=== PATIENT | male | born 1940 | race Caucasian/White ===

== ENCOUNTER → 2020-09-15 13:30 | Outpatient (BNVA) | payer MEDICARE, SELFPAY | PROVIDERS: PCP Internal Medicine; Referring Provider Internal Medicine; Visit Provider Urology | DX: N39.0 Urinary tract infection, site not specified (principal); C61 Malignant neoplasm of prostate; N31.9 Neuromuscular dysfunction of bladder, unspecified | CPT/HCPCS: 51701; 51702; 99212 ==

== ENCOUNTER → 2020-10-13 14:01 | Outpatient (BNVA) | payer MEDICARE, SELFPAY | PROVIDERS: PCP Nurse Practitioner Family; Referring Provider Nurse Practitioner Family; Visit Provider Urology | DX: Z46.6 Encounter for fitting and adjustment of urinary device (principal) | CPT/HCPCS: 51701; 51702; 99212 ==

== ENCOUNTER → 2020-11-10 12:29 | Outpatient (BNVA) | payer MEDICARE, SELFPAY | PROVIDERS: PCP Nurse Practitioner Family; Referring Provider Nurse Practitioner Family; Visit Provider Urology | DX: N31.9 Neuromuscular dysfunction of bladder, unspecified (principal); C61 Malignant neoplasm of prostate | CPT/HCPCS: 51701; 51702; 99212 ==

== ENCOUNTER → 2020-12-09 15:42 | Outpatient (BNVA) | payer MEDICARE, SELFPAY | PROVIDERS: PCP Nurse Practitioner Family; Visit Provider Urology | DX: N31.9 Neuromuscular dysfunction of bladder, unspecified (principal); Z85.46 Personal history of malignant neoplasm of prostate | CPT/HCPCS: 51701; 51702; 99212 ==

== ENCOUNTER → 2021-01-06 15:37 | Outpatient (BNVA) | payer MEDICARE, SELFPAY | PROVIDERS: PCP Nurse Practitioner Family; Visit Provider Urology | DX: Z46.6 Encounter for fitting and adjustment of urinary device (principal) | CPT/HCPCS: 51701; 51702; 99212 ==

== ENCOUNTER → 2021-01-27 14:43 | Outpatient (BNVA) | payer MEDICARE, SELFPAY | PROVIDERS: PCP Nurse Practitioner Family; Visit Provider Urology | DX: Z43.5 Encounter for attention to cystostomy (principal) | CPT/HCPCS: 51701; 51702; 51705; 99212 ==

== ENCOUNTER → 2021-02-23 14:45 | Outpatient (BNVA) | payer MEDICARE, SELFPAY | PROVIDERS: PCP Nurse Practitioner Family; Visit Provider Urology | DX: N39.0 Urinary tract infection, site not specified (principal); N31.9 Neuromuscular dysfunction of bladder, unspecified; R33.9 Retention of urine, unspecified; N35.919 Unspecified urethral stricture, male, unspecified site | CPT/HCPCS: 51701; 51702; 99212 ==

== ENCOUNTER → 2021-03-24 14:05 | Outpatient (BNVA) | payer MEDICARE, SELFPAY | PROVIDERS: PCP Nurse Practitioner Family; Visit Provider Urology | DX: N39.0 Urinary tract infection, site not specified (principal); C61 Malignant neoplasm of prostate; N31.9 Neuromuscular dysfunction of bladder, unspecified | CPT/HCPCS: 51701; 51702; 51705; 99212 ==

== ENCOUNTER → 2021-04-25 14:08 | Outpatient (BNVA) | payer MEDICARE, SELFPAY | PROVIDERS: PCP Nurse Practitioner Family; Visit Provider Urology | DX: N39.0 Urinary tract infection, site not specified (principal); N31.9 Neuromuscular dysfunction of bladder, unspecified; C61 Malignant neoplasm of prostate | CPT/HCPCS: 51701; 51705; 99212 ==

== ENCOUNTER → 2021-05-23 14:01 | Outpatient (BNVA) | payer MEDICARE, SELFPAY | PROVIDERS: PCP Nurse Practitioner Family | DX: Z46.6 Encounter for fitting and adjustment of urinary device (principal); N31.9 Neuromuscular dysfunction of bladder, unspecified; Z88.2 Allergy status to sulfonamides; Z88.8 Allergy status to other drugs, medicaments and biological substances | CPT/HCPCS: 51701; 51702; 51705; 99212 ==

== ENCOUNTER → 2021-06-22 14:14 | Outpatient (BNVA) | payer MEDICARE, SELFPAY | PROVIDERS: PCP Nurse Practitioner Family; Visit Provider Urology | DX: Z46.6 Encounter for fitting and adjustment of urinary device (principal); N31.9 Neuromuscular dysfunction of bladder, unspecified; N30.40 Irradiation cystitis without hematuria; C61 Malignant neoplasm of prostate; I10 Essential (primary) hypertension; Z88.2 Allergy status to sulfonamides; Z88.8 Allergy status to other drugs, medicaments and biological substances | CPT/HCPCS: 51701; 51702; 51705; 99212 ==

== ENCOUNTER 2021-07-26 15:11 | Outpatient (REF) | payer MEDICARE, SELFPAY | END 2021-07-26 15:12 | disposition home or self-care (01) | LOC: HO.LNP 15:11 | PROVIDERS: PCP Nurse Practitioner Family; Visit Provider Urology | DX: N31.9 Neuromuscular dysfunction of bladder, unspecified (principal); N39.0 Urinary tract infection, site not specified; N39.8 Other specified disorders of urinary system; Z85.46 Personal history of malignant neoplasm of prostate | CPT/HCPCS: 51701; 51705; 87086; 99212 ==

== ENCOUNTER → 2021-08-25 14:45 | Outpatient (BNVA) | payer MEDICARE, SELFPAY | PROVIDERS: Visit Provider Urology | DX: N31.9 Neuromuscular dysfunction of bladder, unspecified (principal) | CPT/HCPCS: 51702; 51705; 99212 ==

== ENCOUNTER → 2021-09-26 14:33 | Outpatient (BNVA) | payer MEDICARE, SELFPAY | PROVIDERS: PCP Internal Medicine; Visit Provider Urology | DX: N41.9 Inflammatory disease of prostate, unspecified (principal); N30.40 Irradiation cystitis without hematuria; N31.9 Neuromuscular dysfunction of bladder, unspecified | CPT/HCPCS: 51701; 51702; 99212 ==

== ENCOUNTER 2021-09-29 08:02 | Outpatient (RCR) | payer MEDICARE, SELFPAY | END 2021-10-19 11:38 | disposition home or self-care (01) | LOC: HO.WCC 08:02 | PROVIDERS: PCP Internal Medicine; Visit Provider Physician Assistant | DX: N30.40 Irradiation cystitis without hematuria (principal); R30.9 Painful micturition, unspecified; N31.9 Neuromuscular dysfunction of bladder, unspecified; G30.9 Alzheimer's disease, unspecified; F02.80 Dementia in other diseases classified elsewhere, unspecified severity, without behavioral disturbance, psychotic disturbance, mood disturbance, and anxiety; I11.0 Hypertensive heart disease with heart failure; I50.9 Heart failure, unspecified; I25.2 Old myocardial infarction; Z92.3 Personal history of irradiation | CPT/HCPCS: 99211; 99212 ==

== ENCOUNTER → 2021-10-26 14:51 | Outpatient (BNVA) | payer MEDICARE, SELFPAY | PROVIDERS: PCP Internal Medicine; Visit Provider Urology | DX: N31.9 Neuromuscular dysfunction of bladder, unspecified (principal) | CPT/HCPCS: 51705 ==

== ENCOUNTER → 2021-11-24 14:51 | Outpatient (BNVA) | payer MEDICARE, SELFPAY | PROVIDERS: PCP Internal Medicine; Visit Provider Urology | DX: Z43.5 Encounter for attention to cystostomy (principal); N31.9 Neuromuscular dysfunction of bladder, unspecified | CPT/HCPCS: 51705 ==

== ENCOUNTER → 2021-12-22 15:03 | Outpatient (BNVA) | payer MEDICARE, SELFPAY | PROVIDERS: PCP Internal Medicine; Visit Provider Urology | DX: N31.9 Neuromuscular dysfunction of bladder, unspecified (principal) | CPT/HCPCS: 51705 ==

== ENCOUNTER → 2022-01-19 15:01 | Outpatient (BNVA) | payer MEDICARE, SELFPAY | PROVIDERS: PCP Internal Medicine; Visit Provider Urology | DX: N31.9 Neuromuscular dysfunction of bladder, unspecified (principal) | CPT/HCPCS: 51702 ==

== ENCOUNTER → 2022-02-15 14:50 | Outpatient (BNVA) | payer MEDICARE, SELFPAY | PROVIDERS: PCP Internal Medicine; Visit Provider Urology | DX: N31.9 Neuromuscular dysfunction of bladder, unspecified (principal) | CPT/HCPCS: 51702 ==

== ENCOUNTER → 2022-03-15 14:55 | Outpatient (BNVA) | payer MEDICARE, SELFPAY | PROVIDERS: PCP Internal Medicine; Visit Provider Urology | DX: N31.9 Neuromuscular dysfunction of bladder, unspecified (principal) | CPT/HCPCS: 51702 ==

== ENCOUNTER → 2022-04-25 11:44 | Outpatient (BNVA) | payer MEDICARE, SELFPAY | PROVIDERS: PCP Internal Medicine; Visit Provider Urology | DX: Z46.6 Encounter for fitting and adjustment of urinary device (principal); N31.9 Neuromuscular dysfunction of bladder, unspecified; N30.40 Irradiation cystitis without hematuria; C61 Malignant neoplasm of prostate | CPT/HCPCS: 51702; 99212 ==

== ENCOUNTER → 2022-05-25 13:32 | Outpatient (BNVA) | payer MEDICARE, SELFPAY | PROVIDERS: PCP Internal Medicine; Visit Provider Urology | DX: N31.9 Neuromuscular dysfunction of bladder, unspecified (principal) | CPT/HCPCS: 51705 ==

== ENCOUNTER → 2022-06-22 13:38 | Outpatient (BNVA) | payer MEDICARE, SELFPAY | PROVIDERS: PCP Internal Medicine; Visit Provider Urology | DX: N31.9 Neuromuscular dysfunction of bladder, unspecified (principal) | CPT/HCPCS: 51702 ==

== ENCOUNTER → 2022-07-20 15:34 | Outpatient (BNVA) | payer MEDICARE, SELFPAY | PROVIDERS: PCP Internal Medicine; Visit Provider Urology | DX: N31.9 Neuromuscular dysfunction of bladder, unspecified (principal) | CPT/HCPCS: 51702 ==

== ENCOUNTER → 2022-08-17 15:04 | Outpatient (BNVA) | payer MEDICARE, SELFPAY | PROVIDERS: PCP Internal Medicine; Visit Provider Urology | DX: Z13.89 Encounter for screening for other disorder (principal) | CPT/HCPCS: 51702 ==

== ENCOUNTER → 2022-09-27 14:39 | Outpatient (BNVA) | payer MEDICARE, SELFPAY | PROVIDERS: PCP Internal Medicine; Visit Provider Urology | DX: N31.9 Neuromuscular dysfunction of bladder, unspecified (principal) | CPT/HCPCS: 51702 ==

== ENCOUNTER 2022-10-17 14:58 | Outpatient (AMB) | payer MEDICARE, SELFPAY ==
--- NOTE | 2022-10-17 15:04 | A.OFFVIS_ITS ---
Intake Intake Visit Reasons: 6 month follow up cath change Intake Note: Patient is present for Follow Up/Catheter Change Urology Medication: Oxybutynin, Ascorbic Acid, Methenamine, Myrbetriq Mixer Machine Feeder Required: No Allergies sulfamethoxazole [From Bactrim] Allergy (Intermediate, Verified 04/23/23 15:55) Unknown trimethoprim [From Bactrim] Allergy (Intermediate, Verified 04/23/23 15:55) Unknown mexiletine [MEXILETINE] Allergy (Unknown, Verified 04/23/23 15:55) RASH protriptyline [From VIVACTIL] Allergy (Unknown, Verified 04/23/23 15:55) RASH Sulfa (Sulfonamide Antibiotics) [SULFA (SULFONAMIDE ANTIBIOTICS)] Allergy (Unknown, Verified 04/23/23 15:55) RASH HPI HPI Comments History of Present Illness Details Josef is a very pleasant male. 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 Urinary retention initially found progressive development over time. Prostate cancer: External beam radiation Prostate cancer was diagnosed January 2005. PSA at diagnosis 5.9.. The [place] grade is 3+3. TNM Classification of Malignant Tumours (TNM) T1c. Initial therapy included radiation therapy Avtar PSA 0.2. Recent labs included a PSA (prostate-specific antigen) July 2014 0.3, February 2016 0.3, a testosterone February 2016 299 06/27 , a PSA (prostate-specific antigen) 0.3 09/28 , a PSA (prostate-specific antigen) 0.3. [facility] Medical History Acute prostatitis Balanitis Balanoposthitis HTN (hypertension) Neurogenic bladder Orchitis Prostate cancer Radiation cystitis Urethral stricture Surgical History History of surgery Review of Systems Const Denies chills and Denies fever(s) Card Reports no additional complaints and Denies syncope Resp Denies cough GI Denies abdominal pain and Denies heartburn Reports as per HPI and Denies change in libido Neuro Denies syncope Psych Denies change in libido Endo Denies change in libido Physical Exam Const General: cooperative, healthy appearing, comfortable and no acute distress Orientation/consciousness: patient oriented x3 HEENT Face and sinus: Yes normal facial exam Mouth: moist mucous membranes Neck Neck: Yes normal visual inspection, Yes full ROM and Yes trachea midline Chest Chest palpation & inspection: normal inspection of the chest Resp Effort & Inspection: normal respiratory effort, able to speak in complete sentences and no respiratory distress GI Inspection: Yes normal to inspection Back/Spine/Pelvis Cervical Spine: normal cervical lordosis Thoracic/Lumbar Spine: thoracic and lumbar spine normal to inspection Skin General skin exam: no rashes or lesions noted Neuro General: patient oriented x3, gait normal, tone normal and moves all extremities Extrem General: Yes normal to inspection and Yes capillary refill normal Assessment & Plan Assessment & Plan (1) Paraphimosis: Code(s): N47.2 - Paraphimosis Plan Paraphimosis reduced in office Medications: New betamethasone dipropionate 0.05% Thin coat 2 times per day to inside of foreskin 1 appl topical BID 15 grams 0RF N47.2 - Paraphimosis Patient Instructions: Imaging studies, laboratory and physical exam results were discussed and reviewed in detail. No major barriers to patient understanding were identified. An opportunity to ask questions regarding the treatment plan was provided. All questions were answered. The patient expressed understanding and agreement with the above treatment plan. The patient is aware they should contact our office by phone for worsening of their current condition or the appearance of new urologic symptoms. Compliance is encouraged with any medications and followup testing that is ordered. It is a privilege to participate in the urologic care of your patient. If you have any questions or concerns regarding treatment for the above conditions, or other urologic issues, please do not hesitate to contact me. The office telephone contact is [phone]. This note is constructed using voice recognition software. While every effort has been made to ensure accuracy end matcher errors may have been included. Yours sincerely, Dr Florencio Philip MD, [facility] - Urology Providers of Expert, Compassionate Care for the Genitourinary System Coding Level of Care Code Est Pt Level 3 (33016) Diagnoses Paraphimosis N47.2
== END 2022-10-17 15:38 | disposition home or self-care (01) ==
LOC: HO.HUSH 14:58
PROVIDERS: PCP Internal Medicine; Visit Provider Urology
DX: N47.2 Paraphimosis (principal)
CPT/HCPCS: 99213

== ENCOUNTER → 2022-10-17 14:58 | Outpatient (BNVA) | payer MEDICARE, SELFPAY | PROVIDERS: PCP Internal Medicine; Visit Provider Urology | DX: N47.2 Paraphimosis (principal) | CPT/HCPCS: 99212 ==

== ENCOUNTER → 2022-11-14 15:32 | Outpatient (BNVA) | payer MEDICARE, SELFPAY | PROVIDERS: PCP Internal Medicine; Visit Provider Urology | DX: Z46.6 Encounter for fitting and adjustment of urinary device (principal); N31.9 Neuromuscular dysfunction of bladder, unspecified | CPT/HCPCS: 51702 ==

== ENCOUNTER → 2022-11-20 15:10 | Outpatient (BNVA) | payer MEDICARE, SELFPAY | PROVIDERS: PCP Internal Medicine; Visit Provider Urology | DX: N30.40 Irradiation cystitis without hematuria (principal); N31.9 Neuromuscular dysfunction of bladder, unspecified; C61 Malignant neoplasm of prostate | CPT/HCPCS: 51701; 51702; 52000; 99212 ==

== ENCOUNTER → 2022-12-11 14:59 | Outpatient (BNVA) | payer MEDICARE, SELFPAY | PROVIDERS: PCP Internal Medicine; Visit Provider Urology | DX: N31.9 Neuromuscular dysfunction of bladder, unspecified (principal) | CPT/HCPCS: 51702 ==

== ENCOUNTER → 2023-01-10 15:05 | Outpatient (BNVA) | payer MEDICARE, SELFPAY | PROVIDERS: PCP Internal Medicine; Visit Provider Urology | DX: N31.9 Neuromuscular dysfunction of bladder, unspecified (principal) | CPT/HCPCS: 51702 ==

== ENCOUNTER → 2023-02-08 14:36 | Outpatient (BNVA) | payer MEDICARE, SELFPAY | PROVIDERS: PCP Nurse Practitioner Primary Care; Visit Provider Urology | DX: N31.9 Neuromuscular dysfunction of bladder, unspecified (principal) | CPT/HCPCS: 51702 ==

== ENCOUNTER → 2023-03-07 15:00 | Outpatient (BNVA) | payer MEDICARE, SELFPAY | PROVIDERS: PCP Nurse Practitioner Primary Care; Visit Provider Urology | DX: N31.9 Neuromuscular dysfunction of bladder, unspecified (principal) | CPT/HCPCS: 51705 ==

== ENCOUNTER → 2023-04-03 15:37 | Outpatient (BNVA) | payer MEDICARE, SELFPAY | PROVIDERS: PCP Nurse Practitioner Primary Care; Visit Provider Urology | DX: N31.9 Neuromuscular dysfunction of bladder, unspecified (principal) | CPT/HCPCS: 51702 ==

== ENCOUNTER → 2023-04-23 15:39 | Outpatient (BNVA) | payer MEDICARE, SELFPAY | PROVIDERS: PCP Nurse Practitioner Primary Care; Visit Provider Urology | DX: N31.9 Neuromuscular dysfunction of bladder, unspecified (principal); Q54.0 Hypospadias, balanic | CPT/HCPCS: 51702; 99212 ==

== ENCOUNTER 2023-05-21 15:04 | Outpatient (AMB) | payer MEDICARE, SELFPAY ==
--- NOTE | 2023-05-21 15:11 | AM.OFFVISNUR ---
Intake Intake Visit Reasons: 4 wk cath change Allergies sulfamethoxazole [From Bactrim] Allergy (Intermediate, Verified 04/23/23 15:55) Unknown trimethoprim [From Bactrim] Allergy (Intermediate, Verified 04/23/23 15:55) Unknown mexiletine [MEXILETINE] Allergy (Unknown, Verified 04/23/23 15:55) RASH protriptyline [From VIVACTIL] Allergy (Unknown, Verified 04/23/23 15:55) RASH Sulfa (Sulfonamide Antibiotics) [SULFA (SULFONAMIDE ANTIBIOTICS)] Allergy (Unknown, Verified 04/23/23 15:55) RASH Office Procedures Bladder/Catheter Procedure Details: 18 fr fisher cath 10 ml balloon replaced with new 18 fr fisher cath w 10 ml balloon and pt provides his own leg bag. 4 week f/u for next change. pt currently with UTI- odor, burning, cloudy urine- per Dr Pedroza script for cipro 250 mg BID x 7 days sent. [id number] Temporary Bladder Catheter Procedure code (CPT) selection complete Coding Diagnoses CPT Codes Bladder/Catheter Procedure - CPT: 63293-Sbuygi Temporary Bladder Catheter ([id number]) Assessment & Plan Assessment & Plan Orders: Orders AMB Bladder/Catheter Procedure Today N31.9 - Neuromuscular dysfunction of bladder, unspecified Medications: New ciprofloxacin HCl (Cipro) 250 mg PO BID 14 tabs 0RF UTI 7 days N39.0 - Urinary tract infection, site not specified
== END 2023-05-21 15:51 | disposition home or self-care (01) ==
PROVIDERS: Visit Provider Urology
DX: N31.9 Neuromuscular dysfunction of bladder, unspecified (principal)
CPT/HCPCS: 51702

== ENCOUNTER → 2023-05-21 15:04 | Outpatient (BNVA) | payer MEDICARE, SELFPAY | PROVIDERS: Visit Provider Urology | DX: Z46.6 Encounter for fitting and adjustment of urinary device (principal); N31.9 Neuromuscular dysfunction of bladder, unspecified | CPT/HCPCS: 51702 ==

== ENCOUNTER 2023-06-18 15:07 | Outpatient (AMB) | payer MEDICARE, SELFPAY ==
--- NOTE | 2023-06-18 15:09 | AM.OFFVISNUR ---
Intake Intake Visit Reasons: 4w cath change Allergies sulfamethoxazole [From Bactrim] Allergy (Intermediate, Verified 04/23/23 15:55) Unknown trimethoprim [From Bactrim] Allergy (Intermediate, Verified 04/23/23 15:55) Unknown mexiletine [MEXILETINE] Allergy (Unknown, Verified 04/23/23 15:55) RASH protriptyline [From VIVACTIL] Allergy (Unknown, Verified 04/23/23 15:55) RASH Sulfa (Sulfonamide Antibiotics) [SULFA (SULFONAMIDE ANTIBIOTICS)] Allergy (Unknown, Verified 04/23/23 15:55) RASH Office Procedures Bladder/Catheter Procedure Details: 18 fr fisher cath 10 ml balloon replaced with new 18 fr fisher cath w 10 ml balloon and pt provides his own leg bag. 4 week f/u for next change. [id number] Temporary Bladder Catheter Procedure code (CPT) selection complete Coding Diagnoses CPT Codes Bladder/Catheter Procedure - CPT: 75256-Dyveei Temporary Bladder Catheter ([id number]) Assessment & Plan Assessment & Plan Orders: Orders AMB Bladder/Catheter Procedure Today N31.9 - Neuromuscular dysfunction of bladder, unspecified
== END 2023-06-18 15:29 | disposition home or self-care (01) ==
PROVIDERS: PCP Nurse Practitioner Primary Care; Visit Provider Urology
DX: N31.9 Neuromuscular dysfunction of bladder, unspecified (principal)

== ENCOUNTER → 2023-06-18 15:07 | Outpatient (BNVA) | payer MEDICARE, SELFPAY | PROVIDERS: PCP Nurse Practitioner Primary Care; Visit Provider Urology | DX: N31.9 Neuromuscular dysfunction of bladder, unspecified (principal) | CPT/HCPCS: 51702 ==

== ENCOUNTER → 2023-07-16 14:56 | Outpatient (BNVA) | payer MEDICARE, SELFPAY | PROVIDERS: PCP Nurse Practitioner Primary Care; Visit Provider Urology | DX: Z43.5 Encounter for attention to cystostomy (principal); N31.9 Neuromuscular dysfunction of bladder, unspecified | CPT/HCPCS: 51705 ==

== ENCOUNTER → 2023-08-16 11:20 | Outpatient (BNVA) | payer MEDICARE, SELFPAY | PROVIDERS: PCP Nurse Practitioner Primary Care; Visit Provider Urology | DX: N31.9 Neuromuscular dysfunction of bladder, unspecified (principal) | CPT/HCPCS: 51702 ==

== ENCOUNTER 2023-09-16 14:46 | Outpatient (AMB) | payer MEDICARE, SELFPAY ==
--- NOTE | 2023-09-16 15:16 | AM.OFFVISNUR ---
Intake Intake Visit Reasons: 4w cath change Allergies sulfamethoxazole [From Bactrim] Allergy (Intermediate, Verified 04/23/23 15:55) Unknown trimethoprim [From Bactrim] Allergy (Intermediate, Verified 04/23/23 15:55) Unknown mexiletine [MEXILETINE] Allergy (Unknown, Verified 04/23/23 15:55) RASH protriptyline [From VIVACTIL] Allergy (Unknown, Verified 04/23/23 15:55) RASH Sulfa (Sulfonamide Antibiotics) [SULFA (SULFONAMIDE ANTIBIOTICS)] Allergy (Unknown, Verified 04/23/23 15:55) RASH Office Procedures Bladder/Catheter Procedure Details: 18 fr fisher cath 10 ml balloon replaced with new 18 fr fisher cath w 10 ml balloon and pt provides his own leg bag. 4 week f/u for next change. [id number] Temporary Bladder Catheter Procedure code (CPT) selection complete Coding CPT Codes Bladder/Catheter Procedure - CPT: 71670-Pwrowl Temporary Bladder Catheter ([id number]) Assessment & Plan Assessment & Plan Orders: Orders AMB Bladder/Catheter Procedure Today N31.9 - Neuromuscular dysfunction of bladder, unspecified
== END 2023-09-16 15:40 | disposition home or self-care (01) ==
PROVIDERS: PCP Nurse Practitioner Primary Care; Visit Provider Urology
DX: N31.9 Neuromuscular dysfunction of bladder, unspecified (principal)

== ENCOUNTER → 2023-09-16 14:46 | Outpatient (BNVA) | payer MEDICARE, SELFPAY | PROVIDERS: PCP Nurse Practitioner Primary Care; Visit Provider Urology | DX: Z46.6 Encounter for fitting and adjustment of urinary device (principal); N31.9 Neuromuscular dysfunction of bladder, unspecified | CPT/HCPCS: 51702 ==

== ENCOUNTER → 2023-10-18 11:33 | Outpatient (BNVA) | payer MEDICARE, SELFPAY | PROVIDERS: PCP Nurse Practitioner Primary Care; Visit Provider Urology | DX: N31.9 Neuromuscular dysfunction of bladder, unspecified (principal) | CPT/HCPCS: 51702 ==

== ENCOUNTER 2023-10-25 15:31 | Outpatient (AMB) | payer MEDICARE, SELFPAY ==
--- NOTE | 2023-10-25 15:39 | MHC.OFFVIS ---
Intake Intake Visit Reasons: Cath change/6m follow up Allergies sulfamethoxazole [From Bactrim] Allergy (Intermediate, Verified 04/23/23 15:55) Unknown trimethoprim [From Bactrim] Allergy (Intermediate, Verified 04/23/23 15:55) Unknown mexiletine [MEXILETINE] Allergy (Unknown, Verified 04/23/23 15:55) RASH protriptyline [From VIVACTIL] Allergy (Unknown, Verified 04/23/23 15:55) RASH Sulfa (Sulfonamide Antibiotics) [SULFA (SULFONAMIDE ANTIBIOTICS)] Allergy (Unknown, Verified 04/23/23 15:55) RASH HPI HPI Comments History of Present Illness Details Josef is a very pleasant male. He is a patient of Dr. Madden. 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 Urinary retention initially found progressive development over time. Prostate cancer: External beam radiation Prostate cancer was diagnosed January 2005. PSA at diagnosis 5.9.. The [place] grade is 3+3. TNM Classification of Malignant Tumours (TNM) T1c. Initial therapy included radiation therapy Avtar PSA 0.2. Recent labs included a PSA (prostate-specific antigen) July 2014 0.3, February 2016 0.3, a testosterone February 2016 299 06/27 , a PSA (prostate-specific antigen) 0.3 09/28 , a PSA (prostate-specific antigen) 0.3. [facility] Medical History Acute prostatitis Balanitis Balanoposthitis HTN (hypertension) Neurogenic bladder Orchitis Prostate cancer Radiation cystitis Urethral stricture Surgical History History of surgery Review of Systems Const Denies chills and Denies fever(s) Card Reports no additional complaints and Denies syncope Resp Denies cough GI Denies abdominal pain and Denies heartburn Reports as per HPI and Denies change in libido Neuro Denies syncope Psych Denies change in libido Endo Denies change in libido Physical Exam Const General: cooperative, healthy appearing, comfortable and no acute distress Orientation/consciousness: patient oriented x3 HEENT Face and sinus: Yes normal facial exam Mouth: moist mucous membranes Neck Neck: Yes normal visual inspection, Yes full ROM and Yes trachea midline Chest Chest palpation & inspection: normal inspection of the chest Resp Effort & Inspection: normal respiratory effort, able to speak in complete sentences and no respiratory distress GI Inspection: Yes normal to inspection Back/Spine/Pelvis Cervical Spine: normal cervical lordosis Thoracic/Lumbar Spine: thoracic and lumbar spine normal to inspection Skin General skin exam: no rashes or lesions noted Neuro General: patient oriented x3, gait normal, tone normal and moves all extremities Extrem General: Yes normal to inspection and Yes capillary refill normal Office Procedures Bladder/Catheter Procedure Details: 18 fr fisher cath 10 ml balloon replaced with new 18 fr fisher cath w 10 ml balloon and pt provides his own leg bag. 4 week f/u for next change. [id number] Temporary Bladder Catheter Procedure code (CPT) selection complete Assessment & Plan Assessment & Plan (1) Recurrent UTI: Code(s): N39.0 - Urinary tract infection, site not specified (2) Radiation cystitis: Code(s): N30.40 - Irradiation cystitis without hematuria (3) Hypospadias, balanic: Code(s): Q54.0 - Hypospadias, balanic Plan Risks, benefits and alternatives to therapy were discussed. These include but are not limited to infection, bleeding, damage to local organs and tissues, need for further interventions. Anesthetic risks regarding cardiac arrhythmia, blood clots, and potential mortality were discussed. The patient understands the typical recovery time and the outpatient nature of the procedure. After consideration of these risks the patient gives full informed consent and they wish to move ahead with the procedure. Cystoscopy, SPT placement Orders: Orders AMB Bladder/Catheter Procedure 10/25/23 N31.9 - Neuromuscular dysfunction of bladder, unspecified Patient Instructions: Imaging studies, laboratory and physical exam results were discussed and reviewed in detail. No major barriers to patient understanding were identified. An opportunity to ask questions regarding the treatment plan was provided. All questions were answered. The patient expressed understanding and agreement with the above treatment plan. The patient is aware they should contact our office by phone for worsening of their current condition or the appearance of new urologic symptoms. Compliance is encouraged with any medications and followup testing that is ordered. It is a privilege to participate in the urologic care of your patient. If you have any questions or concerns regarding treatment for the above conditions, or other urologic issues, please do not hesitate to contact me. The office telephone contact is [phone]. This note is constructed using voice recognition software. While every effort has been made to ensure accuracy dean of students errors may have been included. Yours sincerely, Dr Florencio Philip MD, [facility] - Urology Providers of Expert, Compassionate Care for the Genitourinary System Coding Level of Care Code Est Pt Level 4 (10003) Diagnoses Recurrent UTI N39.0 Radiation cystitis N30.40 Hypospadias, balanic Q54.0 CPT Codes Bladder/Catheter Procedure - CPT: 10286-Cfpqqv Temporary Bladder Catheter ([id number])
== END 2023-10-25 16:24 | disposition home or self-care (01) ==
PROVIDERS: PCP Nurse Practitioner Primary Care; Visit Provider Urology
DX: N30.40 Irradiation cystitis without hematuria (principal)
CPT/HCPCS: 51702; 99214

== ENCOUNTER → 2023-10-25 15:31 | Outpatient (BNVA) | payer MEDICARE, SELFPAY | PROVIDERS: PCP Nurse Practitioner Primary Care; Visit Provider Urology | DX: N39.0 Urinary tract infection, site not specified (principal); N30.40 Irradiation cystitis without hematuria; Q54.0 Hypospadias, balanic | CPT/HCPCS: 51702; 99212 ==

== ENCOUNTER → 2023-11-22 11:27 | Outpatient (BNVA) | payer MEDICARE, SELFPAY | PROVIDERS: PCP Nurse Practitioner Primary Care; Visit Provider Urology | DX: Z43.5 Encounter for attention to cystostomy (principal); N31.9 Neuromuscular dysfunction of bladder, unspecified | CPT/HCPCS: 51705 ==

== ENCOUNTER → 2023-12-20 11:31 | Outpatient (BNVA) | payer MEDICARE, SELFPAY | PROVIDERS: PCP Nurse Practitioner Primary Care; Visit Provider Urology | DX: C61 Malignant neoplasm of prostate (principal); N31.9 Neuromuscular dysfunction of bladder, unspecified | CPT/HCPCS: 51705 ==

== ENCOUNTER 2024-01-08 13:31 | Outpatient (AMB) | payer MEDICARE, SELFPAY ==
--- NOTE | 2024-01-08 13:33 | A.OFFVIS_ITS ---
Intake Intake Visit Reasons: H&P SPT Placement(Vm to confirm) Intake Note: Patient presents today for a telehealth follow-up Meds- Oxybutinin, Myrbetriq Allergies to Antibiotic- Sulfa, Bactrim, Blood Thinner- Eliquis Human Factors Specialist Required: No Allergies sulfamethoxazole [From Bactrim] Allergy (Intermediate, Verified 01/08/24 13:35) Unknown trimethoprim [From Bactrim] Allergy (Intermediate, Verified 01/08/24 13:35) Unknown mexiletine [MEXILETINE] Allergy (Unknown, Verified 01/08/24 13:35) RASH protriptyline [From VIVACTIL] Allergy (Unknown, Verified 01/08/24 13:35) RASH Sulfa (Sulfonamide Antibiotics) [SULFA (SULFONAMIDE ANTIBIOTICS)] Allergy (Unknown, Verified 01/08/24 13:35) RASH Medication List - Last Reconciled 01/08/24 by Florencio Philip MD apixaban 5 mg PO BID ascorbic acid (vitamin C) 1 g PO DAILY 90 days atorvastatin 80 mg PO DAILY betamethasone dipropionate 0.05% 1 appl topical BID catheter (Bard Coude Tip Catheter) As directed ciprofloxacin HCl 250 mg PO BID colchicine 0.6 mg PO DAILY doxycycline hyclate 50 mg PO DAILY furosemide 40 mg PO DAILY furosemide 20 mg PO BID gabapentin mg PO gabapentin mg PO galantamine ER 24 mg PO DAILY lactulose 3 mL PO TID lisinopril 5 mg PO DAILY memantine 28 mg PO DAILY methenamine hippurate 1 g PO DAILY 90 days metoprolol succinate ER mg PO mirabegron ER (Myrbetriq) 25 mg PO DAILY 90 days oxybutynin chloride 5 mg PO Q8H PRN sertraline 25 mg PO DAILY urinary bag (Urinary Leg Bag) As directed HPI HPI Comments History of Present Illness Details Josef is a very pleasant male. He is a patient of Dr. Madden. 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 Urinary retention initially found progressive development over time. Prostate cancer: External beam radiation Prostate cancer was diagnosed January 2005. PSA at diagnosis 5.9.. The [place] grade is 3+3. TNM Classification of Malignant Tumours (TNM) T1c. Initial therapy included radiation therapy Avtar PSA 0.2. Recent labs included a PSA (prostate-specific antigen) July 2014 0.3, February 2016 0.3, a testosterone February 2016 299 06/27 , a PSA (prostate-specific antigen) 0.3 09/28 , a PSA (prostate-specific antigen) 0.3. [facility] Medical History HTN (hypertension) Radiation cystitis Acute prostatitis Balanoposthitis Balanitis Urethral stricture Orchitis Prostate cancer Neurogenic bladder Surgical History History of surgery Review of Systems Const All systems reviewed & are unremarkable except as noted in HPI and below Reports no additional complaints Resp Reports no additional complaints GI Reports no additional complaints Reports as per HPI Musc Reports no additional complaints Physical Exam Telemedicine evaluation Appropriate responses Regular breathing rate and rhythm HEENT Head: Yes normal to inspection Ears: hearing grossly normal bilaterally Eyes General: appearance normal, both eyes and all related structures Neck Neck: Yes normal visual inspection Chest Chest palpation & inspection: normal inspection of the chest Resp Effort & Inspection: normal respiratory effort and able to speak in complete sentences Assessment & Plan Assessment & Plan (1) Radiation cystitis: Code(s): N30.40 - Irradiation cystitis without hematuria (2) Hypospadias, balanic: Code(s): Q54.0 - Hypospadias, balanic (3) Prostate cancer: Code(s): C61 - Malignant neoplasm of prostate Plan Risks, benefits and alternatives to therapy were discussed. These include but are not limited to infection, bleeding, damage to local organs and tissues, need for further interventions. Anesthetic risks regarding cardiac arrhythmia, blood clots, and potential mortality were discussed. The patient understands the typical recovery time and the outpatient nature of the procedure. After consideration of these risks the patient gives full informed consent and they wish to move ahead with the procedure. Cystoscopy with suprapubic tube placed Patient Instructions: Imaging studies, laboratory and physical exam results were discussed and reviewed in detail. No major barriers to patient understanding were identified. An opportunity to ask questions regarding the treatment plan was provided. All questions were answered. The patient expressed understanding and agreement with the above treatment plan. The patient is aware they should contact our office by phone for worsening of their current condition or the appearance of new urologic symptoms. Compliance is encouraged with any medications and followup testing that is ordered. It is a privilege to participate in the urologic care of your patient. If you have any questions or concerns regarding treatment for the above conditions, or other urologic issues, please do not hesitate to contact me. The office telephone contact is [phone]. This note is constructed using voice recognition software. While every effort has been made to ensure accuracy hose inspector errors may have been included. Yours sincerely, Dr Florencio Philip MD, [facility] - Urology Providers of Expert, Compassionate Care for the Genitourinary System Telehealth Telehealth Location of provider rendering services: practice address Location of patient: address on file Patient Identification confirmed using: Name, : Yes Telehealth method: video Patient verbally consented to treatment: Yes Patient verbally consented to billing insurance company: Yes Patient informed of any privacy concerns related to visit: Yes Coding Level of Care Code Tele Est Pt Level 3 (59794) Diagnoses Radiation cystitis N30.40 Hypospadias, balanic Q54.0 Prostate cancer C61
== END 2024-01-08 14:50 | disposition home or self-care (01) ==
LOC: HO.HUSH 13:32
PROVIDERS: PCP Nurse Practitioner Primary Care; Visit Provider Urology
DX: N30.40 Irradiation cystitis without hematuria (principal); Q54.0 Hypospadias, balanic; C61 Malignant neoplasm of prostate
CPT/HCPCS: 99213

== ENCOUNTER → 2024-01-08 13:31 | Outpatient (BNVA) | payer MEDICARE, SELFPAY | PROVIDERS: PCP Nurse Practitioner Primary Care; Visit Provider Urology ==

== ENCOUNTER 2024-01-13 10:06 | Day surgery (SDC) | payer MEDICARE, SELFPAY ==
[2024-01-09 14:31] VITALS: BMI 26.8
[2024-01-13] VITALS (7 sets, daily range): BP systolic 115–138; BP diastolic 65–77; PULSE 60–66; RESP 16–18; TEMP 36.1–36.4; O2SAT 98–100
--- NOTE | 2024-01-13 11:26 | HO.ANESPROP2 ---
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) Past Medical History Medical History (Updated 01/09/24 @ 12:56 by Zeny Oliveros RN) DVT (deep venous thrombosis) Ischemic cardiomyopathy CAD (coronary artery disease) Myocardial infarction Dementia Chest pain Varicose veins of both lower extremities with inflammation Atrial fibrillation COPD (chronic obstructive pulmonary disease) Bradycardia PVD (peripheral vascular disease) HTN (hypertension) Radiation cystitis Acute prostatitis Balanoposthitis Balanitis Urethral stricture Orchitis Prostate cancer Neurogenic bladder Family History Family history of problems with anesthesia: No Surgical History Surgical History (Updated 01/09/24 @ 12:56 by Zeny Oliveros RN) History of coronary artery stent placement Hx of cardiac catheterization History of repair of rotator cuff History of surgery History of Problems with Anesthesia: No Social History Social History Patient Tobacco Use Status: Never used Tobacco Second Hand Smoke Exposure: No Use of substances other than those prescribed or required for medical reasons: No Advance Directives: No Advance Directives Information Provided: Yes Meds Allergies Allergy/AdvReac Type Severity Reaction Status Date / Time sulfamethoxazole Allergy Intermediate Unknown Verified 01/08/24 13:35 [From Bactrim] trimethoprim [From Bactrim] Allergy Intermediate Unknown Verified 01/08/24 13:35 mexiletine [MEXILETINE] Allergy Unknown RASH Verified 01/08/24 13:35 protriptyline [From VIVACTIL] Allergy Unknown RASH Verified 01/08/24 13:35 Sulfa (Sulfonamide Allergy Unknown RASH Verified 01/08/24 13:35 Antibiotics) [SULFA (SULFONAMIDE ANTIBIOTICS)] Home Medications Medication Instructions Recorded Confirmed Last Taken Type atorvastatin 80 mg tablet 80 mg PO BEDTIME 09/15/20 01/10/24 Unknown History colchicine 0.6 mg tablet 0.6 mg PO DAILY 09/15/20 01/10/24 Unknown History gabapentin 600 mg tablet 600 mg PO BEDTIME 09/15/20 01/10/24 Unknown History galantamine 24 mg 24 hr 24 mg PO BEDTIME 09/15/20 01/10/24 Unknown History capsule,extended release lactulose 10 gram/15 mL oral 3 ml PO TID PRN Constipation 09/15/20 01/10/24 Unknown History solution memantine 28 mg capsule 28 mg PO BEDTIME 09/15/20 01/10/24 Unknown History sprinkle,extended release 24hr sertraline 25 mg tablet 25 mg PO DAILY 09/15/20 01/10/24 Unknown History apixaban 5 mg tablet 5 mg PO BID 01/27/21 01/10/24 Unknown History gabapentin 400 mg capsule 400 mg PO BID 03/24/21 01/10/24 Unknown History furosemide 20 mg tablet 30 mg PO DAILY 04/25/22 01/10/24 Unknown History lisinopril 5 mg tablet 5 mg PO DAILY 10/17/22 01/10/24 Unknown History ascorbic acid (vitamin C) 1,000 mg 1 g PO BEDTIME 01/10/24 01/10/24 Unknown History tablet aspirin 81 mg tablet,delayed 81 mg PO DAILY 01/10/24 01/10/24 Unknown History release methenamine hippurate 1 gram tablet 1 g PO BEDTIME 01/10/24 01/10/24 Unknown History metoprolol succinate 25 mg 25 mg PO DAILY 01/10/24 01/10/24 Unknown History tablet,extended release 24 hr mirabegron 25 mg tablet,extended 25 mg PO BEDTIME 01/10/24 01/10/24 Unknown History release 24 hr (Myrbetriq) Exam Height,Weight and Vital Signs: Height 5 ft 8.9 in Weight 82.1 kg Airway Mallampati Class: III TM Dist: >3cm Neck ROM: Limited Denture: Upper and Lower Loose/Missing/Broken Teeth: No Heart: rrr Lungs: cta b/l Assessment and Plan Assessment Anesthesia Assessment: Anesthesia Plan Discussed and Chart Reviewed Final Anesthetic Review Family History of Problems with Anesthesia: No History of Problems with Anesthesia: No NPO: Yes ASA Class: III Final Preanesthetic Review: No Changes in Pt Med Stat, Meds/Allgs Chart Reviewed, Consent Obtained/Reviewed and Anes Risks/Benef Reviewed Patient Risk: Intermediate Procedure Risk: Low Anesthetic Plan Anesthetic Plan: GA Disposition: Standard PACU
--- NOTE | 2024-01-13 11:37 | MHC.SHP ---
Pre-Procedural Eval Section A - 24 Hr Update-Section A only Date of Service: 01/13/24 The patient is an INPATIENT: No Changes since office visit: No Cold of Flu in the past 2 weeks, No New Medical Problems, No Changes in Medication and No Patient answered all questions The patient has been examined within 24 hours of the surgical procedure. The History & Physical has been completed within 30 days and I have reviewed it.: Yes Section B - Complete if H&P > 30 days Chief Complaint: Hypospadias, balanic Allergies: Allergies Allergy/AdvReac Type Severity Reaction Status Date / Time sulfamethoxazole Allergy Intermediate Unknown Verified 01/08/24 13:35 [From Bactrim] trimethoprim [From Bactrim] Allergy Intermediate Unknown Verified 01/08/24 13:35 mexiletine [MEXILETINE] Allergy Unknown RASH Verified 01/08/24 13:35 protriptyline [From VIVACTIL] Allergy Unknown RASH Verified 01/08/24 13:35 Sulfa (Sulfonamide Allergy Unknown RASH Verified 01/08/24 13:35 Antibiotics) [SULFA (SULFONAMIDE ANTIBIOTICS)] Plan Diagnosis/Plan: Unchanged (cystoscopy,suprapubic tube insertion) I have reviewed the history and physical and performed a pertinent physical examination on my patient. No changes have occurred unless specified. Time Spent With Patient Time: Total time managing care of this patient today ____ minutes.
[2024-01-13] MEDS: levoFLOXacin 500 MG TABLET PO (11:46)
--- NOTE | 2024-01-13 13:09 | W.PM.OPN ---
Operative Note Operative Note Date of Service: 01/13/24 Narrative: PreOperative Diagnosis:?neurogenic bladder Post Operative Diagnosis:?neurogenic bladder Procedure:? 1. Cystoscopy 2. Suprapubic tube placement Surgeon: Dr Florencio Philip Anesthesia:?Sedation plus local Indications for procedure: erosion from indwelling fisher catheter Procedure: After informed consent was verified the patient was brought to the operating room and placed in a supine position.? Anesthesia was administered per protocol. The patient was placed in a modified dorsal lithotomy position and prepped and draped in a sterile fashion. A safety pause was performed confirming patient identity, procedure and antibiotics. A 22 Pashto cystoscope was inserted per urethra. Bladder was examined in its entirety. No abnormalities seen. Air bubble was located at the dome of the bladder. A finder needle was inserted 2 fingerbreaths above the symphysis pubis on the abdomen into the bladder.? The needle was visualized in the bladder via cystoscopy. Local anesthetic was infiltrated subcutaneously around the needle introduction site. A small, 1cm horizontal incision was made.? A trocar introducer was advanced through the abdominal wall into the bladder under visualization. The obturator was removed and a 16 Fr fisher catheter placed. 7cc was used to inflate the balloon. The external portion of the trocar was removed. Dressing was placed, the bladder was emptied, and a drainage bag was attached. The patient tolerated the procedure and was transferred in stable condition to the recovery area. Suprapubic tube will be changed in 1 month with a follow-up office visit.
== END 2024-01-13 14:14 | disposition home or self-care (01) ==
PROVIDERS: PCP Nurse Practitioner Primary Care; Visit Provider Urology
PROC: (CPT 51102; principal; 2024-01-13 11:30)
DX: N31.9 Neuromuscular dysfunction of bladder, unspecified (principal); Q54.0 Hypospadias, balanic; N30.40 Irradiation cystitis without hematuria; C61 Malignant neoplasm of prostate; Z88.8 Allergy status to other drugs, medicaments and biological substances; N47.2 Paraphimosis; I25.10 Atherosclerotic heart disease of native coronary artery without angina pectoris; Z95.5 Presence of coronary angioplasty implant and graft; Z79.01 Long term (current) use of anticoagulants; Z79.82 Long term (current) use of aspirin; Z79.899 Other long term (current) drug therapy; Z88.2 Allergy status to sulfonamides
CPT/HCPCS: 51102; C1758; C1769; J1100; J2405; J2704; J2795; J3010

== ENCOUNTER → 2024-01-13 10:06 | Outpatient (BNV) | payer MEDICARE, SELFPAY | PROVIDERS: PCP Nurse Practitioner Primary Care; Visit Provider Urology | DX: N31.9 Neuromuscular dysfunction of bladder, unspecified (principal) | CPT/HCPCS: 51102 ==

== ENCOUNTER 2024-02-12 15:22 | Outpatient (AMB) | payer MEDICARE, SELFPAY ==
--- NOTE | 2024-02-12 15:39 | A.OFFVIS_ITS ---
Intake Visit Reasons: SPT change (first) Intake Note: Patient presents today for: First SP Tube change Meds- Oxybutinin, Myrbetriq Allergies to Antibiotic- Sulfa, Bactrim, Blood Thinner- Apixaban, Aspirin Footwear Stitcher Required: No Accompanied by: family members Allergies sulfamethoxazole [From Bactrim] Allergy (Intermediate, Verified 02/12/24 15:43) Unknown trimethoprim [From Bactrim] Allergy (Intermediate, Verified 02/12/24 15:43) Unknown mexiletine [MEXILETINE] Allergy (Unknown, Verified 02/12/24 15:43) RASH protriptyline [From VIVACTIL] Allergy (Unknown, Verified 02/12/24 15:43) RASH Sulfa (Sulfonamide Antibiotics) [SULFA (SULFONAMIDE ANTIBIOTICS)] Allergy (Unknown, Verified 02/12/24 15:43) RASH HPI Comments Details: Josef is a very pleasant male. He is a patient of Dr. Madden. 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 Urinary retention initially found progressive development over time. Prostate cancer: External beam radiation Prostate cancer was diagnosed January 2005. PSA at diagnosis 5.9.. The [place] grade is 3+3. TNM Classification of Malignant Tumours (TNM) T1c. Initial therapy included radiation therapy Avtar PSA 0.2. Recent labs included a PSA (prostate-specific antigen) July 2014 0.3, February 2016 0.3, a testosterone February 2016 299 06/27 , a PSA (prostate-specific antigen) 0.3 09/28 , a PSA (prostate-specific antigen) 0.3. PFSH Medical History DVT (deep venous thrombosis) Ischemic cardiomyopathy CAD (coronary artery disease) Myocardial infarction Dementia Chest pain Varicose veins of both lower extremities with inflammation Atrial fibrillation COPD (chronic obstructive pulmonary disease) Bradycardia PVD (peripheral vascular disease) HTN (hypertension) Radiation cystitis Acute prostatitis Balanoposthitis Balanitis Urethral stricture Orchitis Prostate cancer Neurogenic bladder Surgical History History of coronary artery stent placement Hx of cardiac catheterization History of repair of rotator cuff History of surgery Social History Patient Tobacco Use Status: Never used Tobacco Second Hand Smoke Exposure: No Review of Systems Const Denies chills and Denies fever(s) Card Reports no additional complaints and Denies syncope Resp Denies cough GI Denies abdominal pain and Denies heartburn Reports as per HPI and Denies change in libido Neuro Denies syncope Psych Denies change in libido Endo Denies change in libido Physical Exam Const General: cooperative, healthy appearing, comfortable and no acute distress Orientation/consciousness: patient oriented x3 HEENT Face and sinus: Yes normal facial exam Mouth: moist mucous membranes Neck Neck: Yes normal visual inspection, Yes full ROM and Yes trachea midline Chest Chest palpation & inspection: normal inspection of the chest Resp Effort & Inspection: normal respiratory effort, able to speak in complete sentences and no respiratory distress GI Inspection: Yes normal to inspection Back/Spine/Pelvis Cervical Spine: normal cervical lordosis Thoracic/Lumbar Spine: thoracic and lumbar spine normal to inspection Skin General skin exam: no rashes or lesions noted Neuro General: patient oriented x3, gait normal, tone normal and moves all extremities Extrem General: Yes normal to inspection and Yes capillary refill normal Office Procedures Bladder/Catheter Procedure Details: Clean technique Eighteen Yemeni suprapubic tube placed [id number] of bladder tube Procedure code (CPT) selection complete Assessment & Plan Assessment & Plan (1) Hypotonic neurogenic bladder: Code(s): N31.9 - Neuromuscular dysfunction of bladder, unspecified Category: Medical (2) Prostate cancer: Code(s): C61 - Malignant neoplasm of prostate Category: Medical Plan Will come back for teaching penile clamp with nursing Patient Instructions: Imaging studies, laboratory and physical exam results were discussed and review ed in detail. No major barriers to patient understanding were identified. An opportunity to ask questions regarding the treatment plan was provided. All questions were answered. The patient expressed understanding and agreement with the above treatment plan. The patient is aware they should contact our office by phone for worsening of their current condition or the appearance of new urologic symptoms. Compliance is encouraged with any medications and followup testing that is ordered. It is a privilege to participate in the urologic care of your patient. If you have any questions or concerns regarding treatment for the above conditions, or other urologic issues, please do not hesitate to contact me. The office telephone contact is [phone]. This note is constructed using voice recognition software. While every effort has been made to ensure accuracy yarn inspector errors may have been included. Yours sincerely, Dr Florencio Philip MD, MAKS[facility] - Urology Providers of Expert, Compassionate Care for the Genitourinary System
== END 2024-02-12 16:14 | disposition home or self-care (01) ==
PROVIDERS: PCP Nurse Practitioner Primary Care; Visit Provider Urology
DX: C61 Malignant neoplasm of prostate (principal); N31.9 Neuromuscular dysfunction of bladder, unspecified; Z96.0 Presence of urogenital implants
CPT/HCPCS: 51705; 99024

== ENCOUNTER → 2024-02-12 15:22 | Outpatient (BNVA) | payer MEDICARE, SELFPAY | PROVIDERS: PCP Nurse Practitioner Primary Care; Visit Provider Urology | DX: N31.9 Neuromuscular dysfunction of bladder, unspecified (principal); Z46.6 Encounter for fitting and adjustment of urinary device; Z85.46 Personal history of malignant neoplasm of prostate | CPT/HCPCS: 51705; 99212 ==

== ENCOUNTER → 2024-02-21 11:04 | Outpatient (BNVA) | payer MEDICARE, SELFPAY | PROVIDERS: PCP Nurse Practitioner Primary Care; Visit Provider Urology ==

== ENCOUNTER → 2024-03-20 11:36 | Outpatient (BNVA) | payer MEDICARE, SELFPAY | PROVIDERS: PCP Nurse Practitioner Primary Care; Visit Provider Urology | DX: Z43.5 Encounter for attention to cystostomy (principal); N31.9 Neuromuscular dysfunction of bladder, unspecified | CPT/HCPCS: 51705 ==

== ENCOUNTER → 2024-04-16 15:32 | Outpatient (BNVA) | payer MEDICARE, SELFPAY | PROVIDERS: PCP Nurse Practitioner Primary Care; Visit Provider Urology | DX: N31.9 Neuromuscular dysfunction of bladder, unspecified (principal) | CPT/HCPCS: 51705 ==

== ENCOUNTER → 2024-05-11 15:48 | Outpatient (BNVA) | payer MEDICARE, SELFPAY | PROVIDERS: PCP Nurse Practitioner Primary Care; Visit Provider Urology | DX: N31.9 Neuromuscular dysfunction of bladder, unspecified (principal) | CPT/HCPCS: 51705 ==

== ENCOUNTER 2024-06-09 15:43 | Outpatient (AMB) | payer MEDICARE, SELFPAY ==
--- NOTE | 2024-06-09 15:47 | A.OFFVIS_ITS ---
Intake Visit Reasons: 3m/4w SPT change Intake Note: Patient is present for SPT Change Allergies sulfamethoxazole [From Bactrim] Allergy (Intermediate, Verified 02/12/24 15:43) Unknown trimethoprim [From Bactrim] Allergy (Intermediate, Verified 02/12/24 15:43) Unknown mexiletine [MEXILETINE] Allergy (Unknown, Verified 02/12/24 15:43) RASH protriptyline [From VIVACTIL] Allergy (Unknown, Verified 02/12/24 15:43) RASH Sulfa (Sulfonamide Antibiotics) [SULFA (SULFONAMIDE ANTIBIOTICS)] Allergy (Unknown, Verified 02/12/24 15:43) RASH HPI Comments Details: Josef is a very pleasant male. He is a patient of Dr. Madden. 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 Urinary retention initially found progressive development over time. Prostate cancer: External beam radiation Prostate cancer was diagnosed January 2005. PSA at diagnosis 5.9.. The [place] grade is 3+3. TNM Classification of Malignant Tumours (TNM) T1c. Initial therapy included radiation therapy Avtar PSA 0.2. Recent labs included a PSA (prostate-specific antigen) July 2014 0.3, February 2016 0.3, a testosterone February 2016 299 06/27 , a PSA (prostate-specific antigen) 0.3 09/28 , a PSA (prostate-specific antigen) 0.3. [facility] Medical History DVT (deep venous thrombosis) Ischemic cardiomyopathy CAD (coronary artery disease) Myocardial infarction Dementia Chest pain Varicose veins of both lower extremities with inflammation Atrial fibrillation COPD (chronic obstructive pulmonary disease) Bradycardia PVD (peripheral vascular disease) HTN (hypertension) Radiation cystitis Acute prostatitis Balanoposthitis Balanitis Urethral stricture Orchitis Prostate cancer Neurogenic bladder Surgical History History of coronary artery stent placement Hx of cardiac catheterization History of repair of rotator cuff History of surgery Social History Patient Tobacco Use Status: Never used Tobacco Second Hand Smoke Exposure: No Review of Systems Const Denies chills and Denies fever(s) Card Reports no additional complaints and Denies syncope Resp Denies cough GI Denies abdominal pain and Denies heartburn Reports as per HPI and Denies change in libido Neuro Denies syncope Psych Denies change in libido Endo Denies change in libido Physical Exam Const General: cooperative, healthy appearing, comfortable and no acute distress Orientation/consciousness: patient oriented x3 HEENT Face and sinus: Yes normal facial exam Mouth: moist mucous membranes Neck Neck: Yes normal visual inspection, Yes full ROM and Yes trachea midline Chest Chest palpation & inspection: normal inspection of the chest Resp Effort & Inspection: normal respiratory effort, able to speak in complete sentences and no respiratory distress GI Inspection: Yes normal to inspection Back/Spine/Pelvis Cervical Spine: normal cervical lordosis Thoracic/Lumbar Spine: thoracic and lumbar spine normal to inspection Skin General skin exam: no rashes or lesions noted Neuro General: patient oriented x3, gait normal, tone normal and moves all extremities Extrem General: Yes normal to inspection and Yes capillary refill normal Office Procedures Bladder/Catheter Procedure Details: 18 fr cath replaced with 18 fr anuja cath with 8ml balloon and leg bag. offered to use plug vs bag but pt declined stating bag is easier. next change 4 weeks [id number] of bladder tube Procedure code (CPT) selection complete Assessment & Plan Assessment & Plan (1) Hypospadias, balanic: Code(s): Q54.0 - Hypospadias, balanic Category: Medical (2) Prostate cancer: Code(s): C61 - Malignant neoplasm of prostate Category: Medical (3) Hypotonic neurogenic bladder: Code(s): N31.9 - Neuromuscular dysfunction of bladder, unspecified Category: Medical Plan Six-month follow-up Monthly follow-up nursing staff SPT change Orders: Orders AMB Bladder/Catheter Procedure 06/09/24 N31.9 - Neuromuscular dysfunction of bladder, unspecified Patient Instructions: Imaging studies, laboratory and physical exam results were discussed and reviewed in detail. No major barriers to patient understanding were identified. An opportunity to ask questions regarding the treatment plan was provided. All questions were answered. The patient expressed understanding and agreement with the above treatment plan. The patient is aware they should contact our office by phone for worsening of their current condition or the appearance of new urologic symptoms. Compliance is encouraged with any medications and followup testing that is ordered. It is a privilege to participate in the urologic care of your patient. If you have any questions or concerns regarding treatment for the above conditions, or other urologic issues, please do not hesitate to contact me. The office telephone contact is [phone]. This note is constructed using voice recognition software. While every effort has been made to ensure accuracy hazardous substances engineer errors may have been included. Yours sincerely, Dr Florencio Philip MD, MA[facility] - Urology Providers of Expert, Compassionate Care for the Genitourinary System Coding Level of Care Code Est Pt Level 3 (09562) Diagnoses Hypospadias, balanic Q54.0 Prostate cancer C61 Hypotonic neurogenic bladder N31.9 CPT Codes Bladder/Catheter Procedure - CPT: 85038-Sbxjuu of bladder tube ([id number])
== END 2024-06-09 16:12 | disposition home or self-care (01) ==
PROVIDERS: PCP Nurse Practitioner Primary Care; Visit Provider Urology
DX: Q54.0 Hypospadias, balanic (principal); C61 Malignant neoplasm of prostate; N31.9 Neuromuscular dysfunction of bladder, unspecified
CPT/HCPCS: 99499

== ENCOUNTER → 2024-06-09 15:43 | Outpatient (BNVA) | payer MEDICARE, SELFPAY | PROVIDERS: PCP Nurse Practitioner Primary Care; Visit Provider Urology ==

== ENCOUNTER → 2024-07-06 14:30 | Outpatient (BNVA) | payer MEDICARE, SELFPAY | PROVIDERS: PCP Nurse Practitioner Primary Care; Visit Provider Urology | DX: N31.9 Neuromuscular dysfunction of bladder, unspecified (principal) | CPT/HCPCS: 51705 ==

== ENCOUNTER → 2024-08-03 12:57 | Outpatient (BNVA) | payer MEDICARE, SELFPAY | PROVIDERS: PCP Nurse Practitioner Primary Care; Visit Provider Urology | DX: N31.9 Neuromuscular dysfunction of bladder, unspecified (principal); Z46.6 Encounter for fitting and adjustment of urinary device | CPT/HCPCS: 51705 ==

== ENCOUNTER → 2024-08-31 12:59 | Outpatient (BNVA) | payer MEDICARE, SELFPAY | PROVIDERS: PCP Nurse Practitioner Primary Care; Visit Provider Urology | DX: N31.9 Neuromuscular dysfunction of bladder, unspecified (principal) | CPT/HCPCS: 51705 ==

== ENCOUNTER → 2024-09-28 12:59 | Outpatient (BNVA) | payer MEDICARE, SELFPAY | PROVIDERS: PCP Nurse Practitioner Primary Care; Visit Provider Urology | DX: N31.9 Neuromuscular dysfunction of bladder, unspecified (principal); Z46.6 Encounter for fitting and adjustment of urinary device; Z93.50 Unspecified cystostomy status | CPT/HCPCS: 51705 ==

== ENCOUNTER → 2024-10-26 13:05 | Outpatient (BNVA) | payer MEDICARE, SELFPAY | PROVIDERS: PCP Nurse Practitioner Primary Care; Visit Provider Urology | DX: N31.9 Neuromuscular dysfunction of bladder, unspecified (principal); Z46.6 Encounter for fitting and adjustment of urinary device; Z93.50 Unspecified cystostomy status | CPT/HCPCS: 51705 ==

== ENCOUNTER 2024-11-24 15:38 | Outpatient (AMB) | payer MEDICARE, SELFPAY ==
--- NOTE | 2024-11-24 15:42 | MHC.OFFVIS ---
Intake Visit Reasons: 6m/4w SPT change Intake Note: Patient is present for 6M/4W SPT CHANGE Urology Medication:VITAMIN C,OXYBUTYNIN,METHENAMINE HIPPURATE,BETAMETHASON,MYRBETRIQ Antibiotic Allergy:SULFA,BACTRIM Blood Thinner:ASPIRIN Poultry Buyer Required: No Allergies sulfamethoxazole [From Bactrim] Allergy (Intermediate, Verified 11/24/24 15:44) Unknown trimethoprim [From Bactrim] Allergy (Intermediate, Verified 11/24/24 15:44) Unknown mexiletine [MEXILETINE] Allergy (Unknown, Verified 11/24/24 15:44) RASH protriptyline [From VIVACTIL] Allergy (Unknown, Verified 11/24/24 15:44) RASH Sulfa (Sulfonamide Antibiotics) [SULFA (SULFONAMIDE ANTIBIOTICS)] Allergy (Unknown, Verified 11/24/24 15:44) RASH HPI Comments Details: Josef is a very pleasant male. He is a patient of Dr. Madden. 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 Urinary retention initially found progressive development over time. Prostate cancer: External beam radiation Prostate cancer was diagnosed January 2005. PSA at diagnosis 5.9.. The [place] grade is 3+3. TNM Classification of Malignant Tumours (TNM) T1c. Initial therapy included radiation therapy Avtar PSA 0.2. Recent labs included a PSA (prostate-specific antigen) July 2014 0.3, February 2016 0.3, a testosterone February 2016 299 06/27 , a PSA (prostate-specific antigen) 0.3 09/28 , a PSA (prostate-specific antigen) 0.3. [facility] Medical History DVT (deep venous thrombosis) Ischemic cardiomyopathy CAD (coronary artery disease) Myocardial infarction Dementia Chest pain Varicose veins of both lower extremities with inflammation Atrial fibrillation COPD (chronic obstructive pulmonary disease) Bradycardia PVD (peripheral vascular disease) HTN (hypertension) Radiation cystitis Acute prostatitis Balanoposthitis Balanitis Urethral stricture Orchitis Prostate cancer Neurogenic bladder Surgical History History of coronary artery stent placement Hx of cardiac catheterization History of repair of rotator cuff History of surgery Social History Patient Tobacco Use Status: Never used Tobacco Second Hand Smoke Exposure: No Review of Systems Const Denies chills and Denies fever(s) Card Reports no additional complaints and Denies syncope Resp Denies cough GI Denies abdominal pain and Denies heartburn Reports as per HPI and Denies change in libido Neuro Denies syncope Psych Denies change in libido Endo Denies change in libido Physical Exam Const General: cooperative, healthy appearing, comfortable and no acute distress Orientation/consciousness: patient oriented x3 HEENT Face and sinus: Yes normal facial exam Mouth: moist mucous membranes Neck Neck: Yes normal visual inspection, Yes full ROM and Yes trachea midline Chest Chest palpation & inspection: normal inspection of the chest Resp Effort & Inspection: normal respiratory effort, able to speak in complete sentences and no respiratory distress GI Inspection: Yes normal to inspection Back/Spine/Pelvis Cervical Spine: normal cervical lordosis Thoracic/Lumbar Spine: thoracic and lumbar spine normal to inspection Skin General skin exam: no rashes or lesions noted Neuro General: patient oriented x3, gait normal, tone normal and moves all extremities Extrem General: Yes normal to inspection and Yes capillary refill normal Office Procedures Bladder/Catheter Procedure Details: 20 fr cath replaced with new 20 fr anuja cath with 8ml balloon and leg bag, patient tolerated exchange well. Next change with nursing in 4 weeks [id number] of bladder tube Procedure code (CPT) selection complete Assessment & Plan Assessment & Plan (1) Hypotonic neurogenic bladder: Code(s): N31.9 - Neuromuscular dysfunction of bladder, unspecified Category: Medical Plan One month follow-up nursing suprapubic tube change Orders: Orders AMB Bladder/Catheter Procedure 11/24/24 N31.9 - Neuromuscular dysfunction of bladder, unspecified Patient Instructions: Imaging studies, laboratory and physical exam results were discussed and reviewed in detail. No major barriers to patient understanding were identified. An opportunity to ask questions regarding the treatment plan was provided. All questions were answered. The patient expressed understanding and agreement with the above treatment plan. The patient is aware they should contact our office by phone for worsening of their current condition or the appearance of new urologic symptoms. Compliance is encouraged with any medications and followup testing that is ordered. It is a privilege to participate in the urologic care of your patient. If you have any questions or concerns regarding treatment for the above conditions, or other urologic issues, please do not hesitate to contact me. The office telephone contact is [phone]. This note is constructed using voice recognition software. While every effort has been made to ensure accuracy topographical drafter errors may have been included. Yours sincerely, Dr Florencio Philip MD, [facility] - Urology Providers of Expert, Compassionate Care for the Genitourinary System Coding Level of Care Code Est Pt Level 3 (01253) Diagnoses Hypotonic neurogenic bladder N31.9 CPT Codes Bladder/Catheter Procedure - CPT: 09826-Bosrak of bladder tube ([id number])
== END 2024-11-24 16:33 | disposition home or self-care (01) ==
PROVIDERS: PCP Nurse Practitioner Primary Care; Visit Provider Urology
DX: N31.9 Neuromuscular dysfunction of bladder, unspecified (principal)
CPT/HCPCS: 51705

== ENCOUNTER → 2024-11-24 15:38 | Outpatient (BNVA) | payer MEDICARE, SELFPAY | PROVIDERS: PCP Nurse Practitioner Primary Care; Visit Provider Urology | DX: N31.9 Neuromuscular dysfunction of bladder, unspecified (principal) | CPT/HCPCS: 51705; 99212 ==

== ENCOUNTER → 2024-12-21 14:02 | Outpatient (BNVA) | payer MEDICARE, SELFPAY | PROVIDERS: PCP Nurse Practitioner Primary Care; Visit Provider Urology | DX: C61 Malignant neoplasm of prostate (principal); N31.9 Neuromuscular dysfunction of bladder, unspecified | CPT/HCPCS: 51705 ==

== ENCOUNTER → 2025-01-18 14:35 | Outpatient (BNVA) | payer MEDICARE, SELFPAY | PROVIDERS: PCP Nurse Practitioner Primary Care; Visit Provider Urology | DX: N31.9 Neuromuscular dysfunction of bladder, unspecified (principal) | CPT/HCPCS: 51705 ==

== ENCOUNTER 2025-01-25 16:47 | Outpatient (REF) | payer MEDICARE, SELFPAY ==
[2025-01-25 17:13] LABS: Appearance Urine Clear; Color Urine Yellow; Glucose Urine UA Negative (Negative); Leukocyte Esterase Urine Small (1+) (Negative); Nitrite Urine Positive (Negative); PH 5.5 (5.0-9.0); Specific Gravity - Urine 1.015 (1.005-1.025); UMIC TRIGGER UA YES; Urine Blood Small (1+) (Negative); Urine Ketones Negative (Negative); Urine Protein Negative (Neg-Trace)
[2025-01-25 17:35] LABS: Bacteria Urine None Seen (None Seen); Calcium Oxalate Crystals Urine Present; Squamous Epithelial Cell Urine 0-2 /HPF (0-2)
== END 2025-01-25 16:48 | disposition home or self-care (01) ==
LOC: HO.LNP 16:47
PROVIDERS: Visit Provider Urology
DX: N39.0 Urinary tract infection, site not specified (principal); N31.9 Neuromuscular dysfunction of bladder, unspecified
CPT/HCPCS: 81001; 87086